=== PATIENT | female | born 1995 | race American Indian/Alaskan Native ===

== ENCOUNTER 2021-01-11 11:50 | Inpatient (IN) | payer OTHER ==
[2021-01-11 13:09] LABS: Bilirubin,Urine NEG (Negative); Blood,Urine NEG (Negative); Color,Urine Yellow (Yellow); Mucus,Urine FEW /HPF; Protein,Urine <15 mg/dL mg/dL (Negative); Urobilinogen,Urine < 2.0 mg/dL (<2.0)
--- NOTE | 2021-01-11 14:31 | History and Physical Report ---
History of Present Illness Date of examination: 01/11/21 (SROM not in labor) Chief complaint: LOF this AM @ 1045 History of present illness: EDC Confirmation: 01/20/2021 Gestational Age: 38w5/7 weeks Past History : 1 Term Births: 0 Premature Births: 0 Living Children: 0 Para: 0 Mult. Births: 0 Prev : 0 Aborta: 0 Elect. Ab: 0 Spont. Ab: 0 Ectopics: 0 Past Medical History: Reviewed history from 04/17/2019 and no changes required: Negative Past Medical History Past Surgical History: Reviewed history from 04/17/2019 and no changes required: positive: ORAL SX Past Medical History Anesthesia Complications: negative Surgery (Non-calibration checker): positive: ORAL SX Abnormal PAP: negative FREDY Exposure: negative Infertility: negative Uterine Anomaly: negative Uterine Surgery (not C/S): negative Social Hx: Patient is Smoking History: Patient has never smoked. +etoh. no tobacco. no durgs Infection History Hx of STD: none HIV Risk Eval: no Genetic History Congenital Heart Defect: Mom: no Dad: no Ezekiel Disease: Mom: no Dad: no Thalassemia Mom: no Dad: no Neural Tube Defect Mom: no Dad: no Down's Syndrome Mom: no Dad: no Rogelio-Sachs Mom: no Dad: no Sickle Cell Disease/Trait Mom: no Dad: no Hemophilia Mom: no Dad: no Muscular Dystrophy Mom: no Dad: no Cystic Fibrosis Mom: no Dad: no Warren Chorea Mom: no Dad: no Mental Retardation Mom: no Dad: no Fragile X Mom: no Dad: no Other Genetic/Chromosomal Disorder Mom: no Dad: no Child w/other defect Mom: no Dad: no Enviromental Exposures Xray Exposure: no Medication, drug, or alcohol use since LMP: no Chemical/Other Exposure: no Exposure to Cat Liter: no Hx of Parvovirus (Fifth Disease): no Occupational Exposure to Children: none Active Medications (reviewed today): None Current Allergies (reviewed today): No known allergies Past History - Obstetrical History Expected Date of Delivery: 01/20/21 Actual Gestation: 38 Week(s) 6 Day(s) : 1 Medications and Allergies Allergies Allergy/AdvReac Type Severity Reaction Status Date / Time No Known Allergies Allergy Unverified 01/11/21 12:46 Review of Systems All systems: negative - Vital Signs Vital signs: Vital Signs Pulse BP Pulse Ox 100 H 113/87 98 01/11/21 12:22 01/11/21 12:22 01/11/21 12:22 Temp Pulse Resp BP Pulse Ox 98.0 F 57 L 16 113/87 100 01/11/21 12:28 01/11/21 14:17 01/11/21 12:28 01/11/21 12:28 01/11/21 14:17 - Physical Exam Breasts: Positive: deferred Cardiovascular: Regular rate, Normal S1, Normal S2 Lungs: Positive: Clear to auscultation Abdomen: Positive: normal appearance, soft, normal bowel sounds. Negative: distention, tenderness Genitourinary (Female): Positive: normal external genitalia Vulva: both: normal Vagina: Positive: normal moisture. Negative: discharge Cervix: Negative: lesion, discharge Uterus: Positive: normal size, normal contour Adnexa: both: normal Anus/Rectum: Positive: normal perianal skin, heme negative. Negative: rectal mass, hemorrhoids Extremities: Positive: normal Deep Tendon Reflex Grade: Normal +2 - Obstetrical FHR: category 1 Uterine Contraction Monitor Mode: External Cervical Dilatation: 1 (posterior) Cervical Effacement Percentage: 50 (clear fluid) station: -3 Uterine Contraction Pattern: Irregular Uterine Contraction Intensity: Mild Results Result Diagrams: 01/11/21 15:00 All other labs normal. GBS Negative HBsAg Screen Negative Negative *1 RPR Non Reactive Non Reactive *2 Rubella Antibodies, IgG [L] <0.90 index Immune >0.99 *3 Non-immune <0.90 Equivocal 0.90 - 0.99 Immune >0.99 ABO Grouping O *4 Rh Factor Positive *5 Please note: Prior records for this patient's ABO / Rh type are not available for additional verification. Antibody Screen Negative Negative *6 WBC 6.2 x10E3/uL 3.4-10.8 *7 RBC 4.94 x10E6/uL 3.77-5.28 *8 Hemoglobin 12.7 g/dL 11.1-15.9 *9 Hematocrit 39.2 % 34.0-46.6 *10 MCV 79 fL 79-97 *11 MCH [L] 25.7 pg 26.6-33.0 *12 MCHC 32.4 g/dL 31.5-35.7 *13 RDW 13.8 % 11.7-15.4 *14 Platelets 340 x10E3/uL 150-450 *15 Neutrophils 68 % Not Estab. *16 Lymphs 23 % Not Estab. *17 Monocytes 7 % Not Estab. *18 Eos 1 % Not Estab. *19 Basos 1 % Not Estab. *20 ! Immature Cells <No Reported Value> *21 Neutrophils (Absolute) 4.2 x10E3/uL 1.4-7.0 *22 Lymphs (Absolute) 1.4 x10E3/uL 0.7-3.1 *23 Monocytes(Absolute) 0.4 x10E3/uL 0.1-0.9 *24 Eos (Absolute) 0.0 x10E3/uL 0.0-0.4 *25 Baso (Absolute) 0.0 x10E3/uL 0.0-0.2 *26 ! Immature Granulocytes 0 % Not Estab. *27 ! Immature Grans (Abs) 0.0 x10E3/uL 0.0-0.1 *28 ! NRBC <No Reported Value> *29 Hematology Comments: <No Reported Value> *30 Tests: (2) HB Solu + Rflx Frac ([id number]) Hemoglobin (Hgb) Solubility Negative Negative *31 Tests: (3) HIV Ag/Ab with Reflex ([id number]) HIV Screen 4th Generation wRfx Non Reactive Non Reactive *32 Tests: (4) HCV Ab w/Rflx to Verification ([id number]) ! HCV Ab <0.1 s/co ratio 0.0-0.9 *33 Tests: (5) Comment: ([id number]) ! Comment: SPRCS *34 Non reactive HCV antibody screen is consistent with no HCV infection, unless recent infection is suspected or other evidence exists to indicate HCV infection. Tests: (6) Urine Culture, Routine ([id number]) Urine Culture, Routine Final report *35 Tests: (7) Result ([id number]) ! Result 1 MUG *36 Mixed urogenital trista Greater than 100,000 colony forming units per mL Assessment and Plan 25yo @ 38w with SROM not in labor GBS negative All orders in EMR Dr Yo aware of admission - Patient Problems (1) Spontaneous rupture of membranes Onset Date: ~01/11/21 Current Visit: Yes Status: Acute Plan to address problem: GBS negative Will plan to start low dose pit overnight. Cat 1 FHR tracing
[2021-01-11] MEDS ORDERED: TERBUTALINE 1 MG/1 ML INJ SUB-Q PRN (14:32)
[2021-01-11] MEDS ORDERED: ePHEDrine SULFATE 50 MG/1 ML INJ IV PRN (14:32)
[2021-01-11] MEDS ORDERED: ONDANSETRON 4 MG/2 ML INJ IV PRN (14:32)
[2021-01-11] MEDS ORDERED: LIDOCAINE (2%) 20 MG/1 ML VIAL 20 ML MDV INFILTRATI ONE (14:32)
[2021-01-11] MEDS ORDERED: MINERAL OIL 30 ML ORAL LIQD PO PRN (14:32)
[2021-01-11] MEDS ORDERED: fentaNYL 100 MCG/2 ML INJ IV PRN (14:32)
[2021-01-11] MEDS ORDERED: LACTATED RINGERS 1,000 ML IV SCH (14:45)
[2021-01-11] MEDS ORDERED: OXYTOCIN DRIP 30 UNITS/500 ML BAG IV SCH ×2 (15:00)
[2021-01-11 15:44] LABS: Hemoglobin 11.9 gm/dl (10.1-14.3); Mean Corpuscular HGB Conc 34 % (30-34); Mean Corpuscular Volume 82 fl (79-97); Platelet Count 255 K/mm3 (140-440); Red Blood Count 4.26 M/mm3 (3.65-5.03); Red Cell Distribution Width 14.6 % (13.2-15.2)
--- NOTE | 2021-01-12 05:24 | Anesthesia Consultation ---
Anesthesia Consult and Med Hx Date of service: 01/12/21 - Airway Anesthetic Teeth Evaluation: Good ROM Head & Neck: Adequate Mental/Hyoid Distance: Adequate Mallampati Class: Class II Intubation Access Assessment: Good - Pulmonary Exam CTA: Yes - Cardiac Exam Cardiac Exam: RRR - Pre-Operative Health Status ASA Pre-Surgery Classification: ASA2 Proposed Anesthetic Plan: Epidural - Pulmonary Hx Smoking: No Hx Asthma: No Hx Respiratory Symptoms: No SOB: No COPD: No Home Oxygen Therapy: No Hx Pneumonia: No Hx Sleep Apnea: No - Cardiovascular System Hx Hypertension: No Hx Coronary Artery Disease: No Hx Heart Attack/AMI: No Hx Angina: No Hx Percutaneous Transluminal Coronary Angioplasty (PTCA): No Hx Cardia Arrhythmia: No Hx Pacemaker: No Hx Internal Defibrillator: No Hx Valvular Heart Disease: No Hx Heart Murmur: No Hx Peripheral Vascular Disease: No - Central Nervous System Hx Neuromuscular Disorder: No Hx Seizures: No CVA: No Hx Back Pain: No Hx Psychiatric Problems: No - Gastrointestinal Hx Ulcer: No Hx Gastroesophageal Reflux Disease: Yes - Endocrine Hx Renal Disease: No Hx End Stage Renal Disease: No Hx Cirrhosis: No Hx Liver Disease: No Hx Insulin Dependent Diabetes: No Hx Non-Insulin Dependent Diabetes: No Hx Thyroid Disease: No Hx Hypothyroidism: No Hx Hyperthyroidism: No - Hematic Hx Anemia: No Hx Sickle Cell Disease: No - Other Systems Hx Alcohol Use: No Hx Substance Use: No Hx Cancer: No Hx Obesity: No
--- NOTE | 2021-01-12 05:29 | Progress Note ---
Labor Epidural - Labor Epidural Start Time: 05:08 Stop Time: 05:11 Performed by:: JUAN SCHAFFER Procedure: Patient is requesting a laboring epidural for laboring pain. Patient IDed, H&P reviewed, all questions and concerns were answered, and consent was signed. Timeout was performed at bedside. Patient in sitting position. Sterile prep and drape was performed. [3] ml of 1% lidocaine skin wheal at L[3]- L [4]. 18- gauge Tuohy epidural needle was advanced to loss of resistance with saline technique 7cm. Negative CSF negative blood. Epidural catheter advanced to [10] centimeters. [NEGATIVE] Aspiration [NEGATIVE] test dose. Sterile dressing applied. Patient tolerated procedure.
[2021-01-12] MEDS ORDERED: fentaNYL-BUPIV 2 MCG/ML-0.125% 200 MCG/100 ML BAG EPIDURAL ONE (05:40)
--- NOTE | 2021-01-12 06:01 | Progress Note ---
Assessment and Plan Received call enroute that pt was complete. On my arrival pt asking for epidural. Anesthesia called. Epidural placed, with good results. SVE 5,80,0 Internal monitors placed. Pit @ 2mu will increase per protocol. All concerns addressed - Patient Problems (1) Spontaneous rupture of membranes Onset Date: ~01/11/21 Current Visit: Yes Status: Acute Subjective - Subjective Date of service: 01/12/21 (comfortable with epidural) Principal diagnosis: IUP @ 38w6d SROM 01/11/21 clear Interval history: EDC Confirmation: 01/20/2021 Gestational Age: 38w5/7 weeks Past History : 1 Term Births: 0 Premature Births: 0 Living Children: 0 Para: 0 Mult. Births: 0 Prev : 0 Aborta: 0 Elect. Ab: 0 Spont. Ab: 0 Ectopics: 0 Past Medical History: Reviewed history from 04/17/2019 and no changes required: Negative Past Medical History Past Surgical History: Reviewed history from 04/17/2019 and no changes required: positive: ORAL SX Past Medical History Anesthesia Complications: negative Surgery (Non-head correction officer): positive: ORAL SX Abnormal PAP: negative FREDY Exposure: negative Infertility: negative Uterine Anomaly: negative Uterine Surgery (not C/S): negative Social Hx: Patient is Smoking History: Patient has never smoked. +etoh. no tobacco. no durgs Infection History Hx of STD: none HIV Risk Eval: no Genetic History Congenital Heart Defect: Mom: no Dad: no Ezekiel Disease: Mom: no Dad: no Thalassemia Mom: no Dad: no Neural Tube Defect Mom: no Dad: no Down's Syndrome Mom: no Dad: no Rogelio-Sachs Mom: no Dad: no Sickle Cell Disease/Trait Mom: no Dad: no Hemophilia Mom: no Dad: no Muscular Dystrophy Mom: no Dad: no Cystic Fibrosis Mom: no Dad: no Luciano Chorea Mom: no Dad: no Mental Retardation Mom: no Dad: no Fragile X Mom: no Dad: no Other Genetic/Chromosomal Disorder Mom: no Dad: no Child w/other defect Mom: no Dad: no Enviromental Exposures Xray Exposure: no Medication, drug, or alcohol use since LMP: no Chemical/Other Exposure: no Exposure to Cat Liter: no Hx of Parvovirus (Fifth Disease): no Occupational Exposure to Children: none Active Medications (reviewed today): None Current Allergies (reviewed today): No known allergies Patient reports: movement normal Objective - Vital Signs Vital Signs: Vital Signs - 12hr 01/11/21 01/11/21 01/11/21 18:22 18:23 18:28 Temperature Pulse Rate 108 H 104 H 98 H Respiratory 15 Rate Blood Pressure 117/64 Blood Pressure 117/64 [Left] O2 Sat by Pulse 100 100 99 Oximetry 01/11/21 01/11/21 01/11/21 18:33 18:38 18:43 Temperature Pulse Rate 112 H 109 H 108 H Respiratory Rate Blood Pressure Blood Pressure [Left] O2 Sat by Pulse 100 100 100 Oximetry 01/11/21 01/11/21 01/11/21 18:48 18:53 18:58 Temperature Pulse Rate 108 H 116 H 108 H Respiratory Rate Blood Pressure Blood Pressure [Left] O2 Sat by Pulse 100 100 99 Oximetry 01/11/21 01/11/21 01/11/21 19:03 19:06 19:08 Temperature 98.3 F Pulse Rate 112 H 105 H 111 H Respiratory 12 Rate Blood Pressure 127/64 Blood Pressure 127/64 [Left] O2 Sat by Pulse 100 100 100 Oximetry 01/11/21 01/11/21 01/11/21 19:13 19:18 19:23 Temperature Pulse Rate 107 H 108 H 114 H Respiratory Rate Blood Pressure Blood Pressure [Left] O2 Sat by Pulse 100 100 99 Oximetry 01/11/21 01/11/21 01/11/21 19:28 19:43 19:48 Temperature Pulse Rate 111 H 99 H 115 H Respiratory Rate Blood Pressure Blood Pressure [Left] O2 Sat by Pulse 100 100 99 Oximetry 01/11/21 01/11/21 01/11/21 19:53 19:58 20:03 Temperature Pulse Rate 109 H 105 H 106 H Respiratory Rate Blood Pressure Blood Pressure [Left] O2 Sat by Pulse 99 99 99 Oximetry 01/11/21 01/11/21 01/11/21 20:08 20:13 20:18 Temperature Pulse Rate 105 H 101 H 103 H Respiratory Rate Blood Pressure Blood Pressure [Left] O2 Sat by Pulse 100 99 99 Oximetry 01/11/21 01/11/21 01/11/21 20:23 20:28 20:33 Temperature Pulse Rate 108 H 100 H 102 H Respiratory Rate Blood Pressure Blood Pressure [Left] O2 Sat by Pulse 99 100 99 Oximetry 01/11/21 01/11/21 01/11/21 20:38 20:43 20:48 Temperature Pulse Rate 101 H 94 H 103 H Respiratory Rate Blood Pressure Blood Pressure [Left] O2 Sat by Pulse 100 99 98 Oximetry 01/11/21 01/11/21 01/11/21 20:53 20:58 21:03 Temperature Pulse Rate 99 H 95 H 108 H Respiratory Rate Blood Pressure Blood Pressure [Left] O2 Sat by Pulse 99 99 99 Oximetry 01/11/21 01/11/21 01/11/21 21:08 21:13 21:18 Temperature Pulse Rate 100 H 103 H 97 H Respiratory Rate Blood Pressure Blood Pressure [Left] O2 Sat by Pulse 99 99 99 Oximetry 01/11/21 01/11/21 01/11/21 21:23 21:28 21:30 Temperature 98.3 F Pulse Rate 103 H 98 H Respiratory Rate Blood Pressure Blood Pressure [Left] O2 Sat by Pulse 99 98 Oximetry 01/11/21 01/11/21 01/11/21 21:33 21:38 21:43 Temperature Pulse Rate 106 H 91 H 94 H Respiratory Rate Blood Pressure Blood Pressure [Left] O2 Sat by Pulse 98 99 99 Oximetry 01/11/21 01/11/21 01/11/21 21:48 21:53 21:58 Temperature Pulse Rate 107 H 92 H 91 H Respiratory Rate Blood Pressure Blood Pressure [Left] O2 Sat by Pulse 99 98 100 Oximetry 01/11/21 01/11/21 01/11/21 22:03 22:08 22:13 Temperature Pulse Rate 91 H 93 H 101 H Respiratory Rate Blood Pressure Blood Pressure [Left] O2 Sat by Pulse 99 99 100 Oximetry 01/11/21 01/11/21 01/11/21 22:18 22:23 22:28 Temperature Pulse Rate 92 H 102 H 92 H Respiratory Rate Blood Pressure Blood Pressure [Left] O2 Sat by Pulse 100 100 100 Oximetry 01/11/21 01/11/21 01/11/21 22:33 22:38 22:43 Temperature Pulse Rate 100 H 90 91 H Respiratory Rate Blood Pressure Blood Pressure [Left] O2 Sat by Pulse 100 100 98 Oximetry 01/11/21 01/11/21 01/11/21 22:48 22:53 23:02 Temperature Pulse Rate 95 H 93 H 101 H Respiratory Rate Blood Pressure Blood Pressure [Left] O2 Sat by Pulse 98 98 99 Oximetry 01/11/21 01/11/21 01/11/21 23:07 23:12 23:17 Temperature Pulse Rate 91 H 88 96 H Respiratory Rate Blood Pressure Blood Pressure [Left] O2 Sat by Pulse 99 99 99 Oximetry 01/11/21 01/11/21 01/11/21 23:22 23:27 23:32 Temperature Pulse Rate 95 H 87 101 H Respiratory Rate Blood Pressure Blood Pressure [Left] O2 Sat by Pulse 98 98 98 Oximetry 01/11/21 01/11/21 01/11/21 23:37 23:38 23:42 Temperature 98.2 F Pulse Rate 95 H 89 Respiratory Rate Blood Pressure Blood Pressure [Left] O2 Sat by Pulse 98 98 Oximetry 01/11/21 01/11/21 01/11/21 23:47 23:52 23:57 Temperature Pulse Rate 84 89 91 H Respiratory Rate Blood Pressure Blood Pressure [Left] O2 Sat by Pulse 98 98 98 Oximetry 01/12/21 01/12/21 01/12/21 00:02 00:07 00:12 Temperature Pulse Rate 85 95 H 86 Respiratory Rate Blood Pressure Blood Pressure [Left] O2 Sat by Pulse 98 98 98 Oximetry 01/12/21 01/12/21 01/12/21 00:17 00:22 00:27 Temperature Pulse Rate 91 H 88 89 Respiratory Rate Blood Pressure Blood Pressure [Left] O2 Sat by Pulse 98 98 98 Oximetry 01/12/21 01/12/21 01/12/21 00:32 00:37 00:49 Temperature Pulse Rate 85 89 92 H Respiratory Rate Blood Pressure Blood Pressure [Left] O2 Sat by Pulse 98 98 99 Oximetry 01/12/21 01/12/21 01/12/21 00:54 00:59 01:04 Temperature Pulse Rate 87 92 H 82 Respiratory Rate Blood Pressure Blood Pressure [Left] O2 Sat by Pulse 98 99 99 Oximetry 01/12/21 01/12/21 01/12/21 01:09 01:14 01:19 Temperature Pulse Rate 85 94 H 81 Respiratory Rate Blood Pressure Blood Pressure [Left] O2 Sat by Pulse 98 98 99 Oximetry 01/12/21 01/12/21 01/12/21 01:24 01:29 01:34 Temperature Pulse Rate 83 82 85 Respiratory Rate Blood Pressure Blood Pressure [Left] O2 Sat by Pulse 99 99 99 Oximetry 01/12/21 01/12/21 01/12/21 01:39 01:44 01:49 Temperature Pulse Rate 94 H 87 87 Respiratory Rate Blood Pressure Blood Pressure [Left] O2 Sat by Pulse 99 98 98 Oximetry 01/12/21 01/12/21 01/12/21 01:54 01:59 02:04 Temperature Pulse Rate 86 94 H 90 Respiratory Rate Blood Pressure Blood Pressure [Left] O2 Sat by Pulse 98 97 98 Oximetry 01/12/21 01/12/21 01/12/21 02:09 02:14 02:19 Temperature Pulse Rate 93 H 83 88 Respiratory Rate Blood Pressure Blood Pressure [Left] O2 Sat by Pulse 99 98 99 Oximetry 01/12/21 01/12/21 01/12/21 02:35 02:40 02:45 Temperature Pulse Rate 89 85 91 H Respiratory Rate Blood Pressure Blood Pressure [Left] O2 Sat by Pulse 98 97 99 Oximetry 01/12/21 01/12/21 01/12/21 02:50 02:55 03:00 Temperature Pulse Rate 85 84 88 Respiratory Rate Blood Pressure Blood Pressure [Left] O2 Sat by Pulse 98 98 98 Oximetry 01/12/21 01/12/21 01/12/21 03:05 03:30 03:35 Temperature Pulse Rate 91 H 86 85 Respiratory Rate Blood Pressure Blood Pressure [Left] O2 Sat by Pulse 98 98 99 Oximetry 01/12/21 01/12/21 01/12/21 03:52 04:20 04:52 Temperature Pulse Rate 92 H 103 H 93 H Respiratory Rate Blood Pressure Blood Pressure [Left] O2 Sat by Pulse 98 100 100 Oximetry 01/12/21 01/12/21 01/12/21 04:56 04:57 05:02 Temperature Pulse Rate 105 H 114 H 97 H Respiratory Rate Blood Pressure 120/77 Blood Pressure [Left] O2 Sat by Pulse 99 98 Oximetry 01/12/21 01/12/21 01/12/21 05:07 05:12 05:16 Temperature Pulse Rate 109 H 99 H 92 H Respiratory Rate Blood Pressure 114/53 Blood Pressure [Left] O2 Sat by Pulse 100 99 Oximetry 01/12/21 01/12/21 01/12/21 05:17 05:22 05:27 Temperature Pulse Rate 86 91 H 83 Respiratory Rate Blood Pressure Blood Pressure [Left] O2 Sat by Pulse 97 98 97 Oximetry 01/12/21 01/12/21 01/12/21 05:32 05:37 05:42 Temperature Pulse Rate 80 83 85 Respiratory Rate Blood Pressure Blood Pressure [Left] O2 Sat by Pulse 99 98 98 Oximetry 01/12/21 01/12/21 05:47 05:52 Temperature Pulse Rate 80 86 Respiratory Rate Blood Pressure Blood Pressure [Left] O2 Sat by Pulse 97 97 Oximetry - Exam Breasts: deferred Cardiovascular: Regular rate Lungs: Normal air movement Abdomen: Present: normal appearance, soft. Absent: distention, tenderness Uterus: Present: normal FHR: auscultation normal, category 1 Uterine Contraction Monitor Mode: Internal Cervical Dilatation: 5 (ISE/IUPC placed) Cervical Effacement Percentage: 80 station: 0 Uterine Contraction Pattern: Regular Uterine Tone Measurement Phase: Resting Uterine Contraction Intensity: Moderate Extremities: normal Deep Tendon Reflex Grade: Normal +2 - Labs Labs: Abnormal Labs 01/11/21 15:00 WBC 12.2 H Laboratory Results - last 24 hr 01/11/21 01/11/21 01/11/21 12:49 15:00 15:00 WBC 12.2 H RBC 4.26 Hgb 11.9 Hct 35.0 MCV 82 MCH 28 MCHC 34 RDW 14.6 Plt Count 255 Urine Color Yellow Urine Turbidity Clear Urine pH 6.0 Ur Specific [place] 1.014 Urine Protein <15 mg/dl Urine Glucose (UA) Neg Urine Ketones Neg Urine Blood Neg Urine Nitrite Neg Urine Bilirubin Neg Urine Urobilinogen < 2.0 Ur Leukocyte Esterase Neg Urine WBC (Auto) 2.0 Urine RBC (Auto) 3.0 U Epithel Cells (Auto) 6.0 Urine Mucus Few Syphilis IgG Antibody Nonreactive Blood Type Antibody Screen 01/11/21 15:00 WBC RBC Hgb Hct MCV MCH MCHC RDW Plt Count Urine Color Urine Turbidity Urine pH Ur Specific [place] Urine Protein Urine Glucose (UA) Urine Ketones Urine Blood Urine Nitrite Urine Bilirubin Urine Urobilinogen Ur Leukocyte Esterase Urine WBC (Auto) Urine RBC (Auto) U Epithel Cells (Auto) Urine Mucus Syphilis IgG Antibody Blood Type O POSITIVE Antibody Screen Negative
--- NOTE | 2021-01-12 06:49 | Ultrasound Report ---
ULTRASOUND OBSTETRIC LIMITED INDICATION / CLINICAL INFORMATION: wellbeing. Clinical Gestational Age (GA): weeks.days COMPARISON: None available. FINDINGS: HEART RATE (beats per minute): 141 AMNIOTIC FLUID INDEX (cm) = 4.4 (normal = 7-24 cm) PRESENTATION: Cephalic. ADDITIONAL FINDINGS: None. IMPRESSION: 1. Oligohydramnios Signer Name: Jonh Bonilla MD Signed: 01/12/2021 6:45 AM Workstation Name: [id number]
--- NOTE | 2021-01-12 07:31 | Progress Note ---
Assessment and Plan A: 25 y.o. @ 38.6 wks, active labor. Cervical exam 9.5/100/0. P: Continue with labor care. Will re-check cervix in 30 minutes to 1 hr. Anticipate . Subjective - Subjective Date of service: 01/12/21 (Pt feeling some vaginal presssure) Principal diagnosis: IUP @ 38w6d SROM 01/11/21 clear Patient reports: new complaints Objective - Vital Signs Vital Signs: Vital Signs - 12hr 01/11/21 01/11/21 01/11/21 19:43 19:48 19:53 Temperature Pulse Rate 99 H 115 H 109 H Respiratory Rate Blood Pressure Blood Pressure [Right] O2 Sat by Pulse 100 99 99 Oximetry 01/11/21 01/11/21 01/11/21 19:58 20:03 20:08 Temperature Pulse Rate 105 H 106 H 105 H Respiratory Rate Blood Pressure Blood Pressure [Right] O2 Sat by Pulse 99 99 100 Oximetry 01/11/21 01/11/21 01/11/21 20:13 20:18 20:23 Temperature Pulse Rate 101 H 103 H 108 H Respiratory Rate Blood Pressure Blood Pressure [Right] O2 Sat by Pulse 99 99 99 Oximetry 01/11/21 01/11/21 01/11/21 20:28 20:33 20:38 Temperature Pulse Rate 100 H 102 H 101 H Respiratory Rate Blood Pressure Blood Pressure [Right] O2 Sat by Pulse 100 99 100 Oximetry 01/11/21 01/11/21 01/11/21 20:43 20:48 20:53 Temperature Pulse Rate 94 H 103 H 99 H Respiratory Rate Blood Pressure Blood Pressure [Right] O2 Sat by Pulse 99 98 99 Oximetry 01/11/21 01/11/21 01/11/21 20:58 21:03 21:08 Temperature Pulse Rate 95 H 108 H 100 H Respiratory Rate Blood Pressure Blood Pressure [Right] O2 Sat by Pulse 99 99 99 Oximetry 01/11/21 01/11/21 01/11/21 21:13 21:18 21:23 Temperature Pulse Rate 103 H 97 H 103 H Respiratory Rate Blood Pressure Blood Pressure [Right] O2 Sat by Pulse 99 99 99 Oximetry 01/11/21 01/11/21 01/11/21 21:28 21:30 21:33 Temperature 98.3 F Pulse Rate 98 H 106 H Respiratory Rate Blood Pressure Blood Pressure [Right] O2 Sat by Pulse 98 98 Oximetry 01/11/21 01/11/21 01/11/21 21:38 21:43 21:48 Temperature Pulse Rate 91 H 94 H 107 H Respiratory Rate Blood Pressure Blood Pressure [Right] O2 Sat by Pulse 99 99 99 Oximetry 01/11/21 01/11/21 01/11/21 21:53 21:58 22:03 Temperature Pulse Rate 92 H 91 H 91 H Respiratory Rate Blood Pressure Blood Pressure [Right] O2 Sat by Pulse 98 100 99 Oximetry 01/11/21 01/11/21 01/11/21 22:08 22:13 22:18 Temperature Pulse Rate 93 H 101 H 92 H Respiratory Rate Blood Pressure Blood Pressure [Right] O2 Sat by Pulse 99 100 100 Oximetry 01/11/21 01/11/21 01/11/21 22:23 22:28 22:33 Temperature Pulse Rate 102 H 92 H 100 H Respiratory Rate Blood Pressure Blood Pressure [Right] O2 Sat by Pulse 100 100 100 Oximetry 01/11/21 01/11/21 01/11/21 22:38 22:43 22:48 Temperature Pulse Rate 90 91 H 95 H Respiratory Rate Blood Pressure Blood Pressure [Right] O2 Sat by Pulse 100 98 98 Oximetry 01/11/21 01/11/21 01/11/21 22:53 23:02 23:07 Temperature Pulse Rate 93 H 101 H 91 H Respiratory Rate Blood Pressure Blood Pressure [Right] O2 Sat by Pulse 98 99 99 Oximetry 01/11/21 01/11/21 01/11/21 23:12 23:17 23:22 Temperature Pulse Rate 88 96 H 95 H Respiratory Rate Blood Pressure Blood Pressure [Right] O2 Sat by Pulse 99 99 98 Oximetry 01/11/21 01/11/21 01/11/21 23:27 23:32 23:37 Temperature Pulse Rate 87 101 H 95 H Respiratory Rate Blood Pressure Blood Pressure [Right] O2 Sat by Pulse 98 98 98 Oximetry 01/11/21 01/11/21 01/11/21 23:38 23:42 23:47 Temperature 98.2 F Pulse Rate 89 84 Respiratory Rate Blood Pressure Blood Pressure [Right] O2 Sat by Pulse 98 98 Oximetry 01/11/21 01/11/21 01/12/21 23:52 23:57 00:02 Temperature Pulse Rate 89 91 H 85 Respiratory Rate Blood Pressure Blood Pressure [Right] O2 Sat by Pulse 98 98 98 Oximetry 01/12/21 01/12/21 01/12/21 00:07 00:12 00:17 Temperature Pulse Rate 95 H 86 91 H Respiratory Rate Blood Pressure Blood Pressure [Right] O2 Sat by Pulse 98 98 98 Oximetry 01/12/21 01/12/21 01/12/21 00:22 00:27 00:32 Temperature Pulse Rate 88 89 85 Respiratory Rate Blood Pressure Blood Pressure [Right] O2 Sat by Pulse 98 98 98 Oximetry 01/12/21 01/12/21 01/12/21 00:37 00:49 00:54 Temperature Pulse Rate 89 92 H 87 Respiratory Rate Blood Pressure Blood Pressure [Right] O2 Sat by Pulse 98 99 98 Oximetry 01/12/21 01/12/21 01/12/21 00:59 01:04 01:09 Temperature Pulse Rate 92 H 82 85 Respiratory Rate Blood Pressure Blood Pressure [Right] O2 Sat by Pulse 99 99 98 Oximetry 01/12/21 01/12/21 01/12/21 01:14 01:19 01:24 Temperature Pulse Rate 94 H 81 83 Respiratory Rate Blood Pressure Blood Pressure [Right] O2 Sat by Pulse 98 99 99 Oximetry 01/12/21 01/12/21 01/12/21 01:29 01:34 01:39 Temperature Pulse Rate 82 85 94 H Respiratory Rate Blood Pressure Blood Pressure [Right] O2 Sat by Pulse 99 99 99 Oximetry 01/12/21 01/12/21 01/12/21 01:44 01:49 01:54 Temperature Pulse Rate 87 87 86 Respiratory Rate Blood Pressure Blood Pressure [Right] O2 Sat by Pulse 98 98 98 Oximetry 01/12/21 01/12/21 01/12/21 01:59 02:04 02:09 Temperature Pulse Rate 94 H 90 93 H Respiratory Rate Blood Pressure Blood Pressure [Right] O2 Sat by Pulse 97 98 99 Oximetry 01/12/21 01/12/21 01/12/21 02:14 02:19 02:35 Temperature Pulse Rate 83 88 89 Respiratory Rate Blood Pressure Blood Pressure [Right] O2 Sat by Pulse 98 99 98 Oximetry 01/12/21 01/12/21 01/12/21 02:40 02:45 02:50 Temperature Pulse Rate 85 91 H 85 Respiratory Rate Blood Pressure Blood Pressure [Right] O2 Sat by Pulse 97 99 98 Oximetry 01/12/21 01/12/21 01/12/21 02:55 03:00 03:05 Temperature Pulse Rate 84 88 91 H Respiratory Rate Blood Pressure Blood Pressure [Right] O2 Sat by Pulse 98 98 98 Oximetry 01/12/21 01/12/21 01/12/21 03:30 03:35 03:52 Temperature Pulse Rate 86 85 92 H Respiratory Rate Blood Pressure Blood Pressure [Right] O2 Sat by Pulse 98 99 98 Oximetry 01/12/21 01/12/21 01/12/21 04:20 04:52 04:56 Temperature Pulse Rate 103 H 93 H 105 H Respiratory Rate Blood Pressure 120/77 Blood Pressure [Right] O2 Sat by Pulse 100 100 Oximetry 01/12/21 01/12/21 01/12/21 04:57 05:02 05:07 Temperature Pulse Rate 114 H 97 H 109 H Respiratory Rate Blood Pressure Blood Pressure [Right] O2 Sat by Pulse 99 98 100 Oximetry 01/12/21 01/12/21 01/12/21 05:12 05:16 05:17 Temperature Pulse Rate 99 H 92 H 86 Respiratory Rate Blood Pressure 114/53 Blood Pressure [Right] O2 Sat by Pulse 99 97 Oximetry 01/12/21 01/12/21 01/12/21 05:22 05:27 05:32 Temperature Pulse Rate 91 H 83 80 Respiratory Rate Blood Pressure Blood Pressure [Right] O2 Sat by Pulse 98 97 99 Oximetry 01/12/21 01/12/21 01/12/21 05:37 05:42 05:47 Temperature Pulse Rate 83 85 80 Respiratory Rate Blood Pressure Blood Pressure [Right] O2 Sat by Pulse 98 98 97 Oximetry 01/12/21 01/12/21 01/12/21 05:52 05:57 06:02 Temperature Pulse Rate 86 79 78 Respiratory Rate Blood Pressure Blood Pressure [Right] O2 Sat by Pulse 97 96 98 Oximetry 01/12/21 01/12/21 01/12/21 06:07 06:12 06:17 Temperature Pulse Rate 78 77 83 Respiratory Rate Blood Pressure Blood Pressure [Right] O2 Sat by Pulse 97 97 98 Oximetry 01/12/21 01/12/21 01/12/21 06:22 06:27 06:30 Temperature 98.1 F Pulse Rate 78 81 Respiratory Rate Blood Pressure Blood Pressure [Right] O2 Sat by Pulse 97 97 Oximetry 01/12/21 01/12/21 01/12/21 06:32 06:37 06:42 Temperature Pulse Rate 76 78 75 Respiratory Rate Blood Pressure Blood Pressure [Right] O2 Sat by Pulse 97 98 98 Oximetry 01/12/21 01/12/21 01/12/21 06:46 06:47 06:48 Temperature Pulse Rate 75 79 82 Respiratory Rate Blood Pressure 94/51 Blood Pressure [Right] O2 Sat by Pulse 99 94 Oximetry 01/12/21 01/12/21 01/12/21 06:52 06:55 06:57 Temperature 98.0 F Pulse Rate 74 76 83 Respiratory 16 Rate Blood Pressure 98/55 Blood Pressure 98/55 [Right] O2 Sat by Pulse 97 99 99 Oximetry 01/12/21 01/12/21 01/12/21 07:02 07:03 07:07 Temperature Pulse Rate 80 82 78 Respiratory Rate Blood Pressure 101/57 Blood Pressure [Right] O2 Sat by Pulse 98 99 Oximetry 01/12/21 01/12/21 01/12/21 07:12 07:17 07:19 Temperature Pulse Rate 80 73 76 Respiratory Rate Blood Pressure 100/60 Blood Pressure [Right] O2 Sat by Pulse 99 98 Oximetry 01/12/21 01/12/21 07:22 07:27 Temperature Pulse Rate 81 90 Respiratory Rate Blood Pressure Blood Pressure [Right] O2 Sat by Pulse 100 100 Oximetry - Exam Abdomen: Present: normal appearance Vulva: both: normal Uterus: Present: normal FHR: category 1 (Had one deceleration while re-positioning to semi folwers. Return to baseline after re-position to back. ) Uterine Contraction Monitor Mode: Internal Cervical Dilatation: 9.5 Cervical Effacement Percentage: 100 station: 0 Uterine Contraction Pattern: Regular Uterine Tone Measurement Phase: Resting Uterine Contraction Intensity: Moderate - Labs Labs: Abnormal Labs 01/11/21 15:00 WBC 12.2 H Laboratory Results - last 24 hr 01/11/21 01/11/21 01/11/21 12:49 15:00 15:00 WBC 12.2 H RBC 4.26 Hgb 11.9 Hct 35.0 MCV 82 MCH 28 MCHC 34 RDW 14.6 Plt Count 255 Urine Color Yellow Urine Turbidity Clear Urine pH 6.0 Ur Specific Struthers 1.014 Urine Protein <15 mg/dl Urine Glucose (UA) Neg Urine Ketones Neg Urine Blood Neg Urine Nitrite Neg Urine Bilirubin Neg Urine Urobilinogen < 2.0 Ur Leukocyte Esterase Neg Urine WBC (Auto) 2.0 Urine RBC (Auto) 3.0 U Epithel Cells (Auto) 6.0 Urine Mucus Few Syphilis IgG Antibody Nonreactive Blood Type Antibody Screen 01/11/21 15:00 WBC RBC Hgb Hct MCV MCH MCHC RDW Plt Count Urine Color Urine Turbidity Urine pH Ur Specific Struthers Urine Protein Urine Glucose (UA) Urine Ketones Urine Blood Urine Nitrite Urine Bilirubin Urine Urobilinogen Ur Leukocyte Esterase Urine WBC (Auto) Urine RBC (Auto) U Epithel Cells (Auto) Urine Mucus Syphilis IgG Antibody Blood Type O POSITIVE Antibody Screen Negative
[2021-01-12] MEDS ORDERED: miSOPROStol 200 MCG TAB ONE ×2 (09:26→09:29)
[2021-01-12] MEDS ORDERED: miSOPROStol 100 MCG TAB ONE (09:26)
--- NOTE | 2021-01-12 09:48 | Procedure Note ---
OB Delivery Note - Delivery Date of Delivery: 01/12/21 Block Cleaner: HUBERT PLUMMER Estimated blood loss: other (600ml) - Vaginal Delivery presentation: vertex Delivery position: OA Intrapartum events: hemorrhage Delivery induction: none Delivery augmentation: pitocin Delivery monitor: external FHT, external uterine, internal FHT, internal uterine Route of delivery: Delivery placenta: spontaneous Delivery cord: nuchal cord (X2 easily reduced. ) Episiotomy: none Delivery laceration: 1st degree (Hemostatic, no repair needed. ) Anesthesia: epidural Delivery comments: of viable male . Nuchal cord X2 easily reduced. Infant to mothers abdomen for skin to skin. Cord cut and clamped and infant handed to [facility] team for evaluation. Spontaneous delivery of placenta intact, complete, 3 vessels noted. Brisk bleeding noted after delivery of placenta. Stopped with Pitocin and 800 mcg of rectal. Fundus firm and minimal bleeding noted after interventions. Perineum and vagina inspected, 1st degree noted, hemostatic, no repair needed. weight 7 lbs 0.3 ozs. EBL: 600ml. Apgars 8,9. Infant and mother left in care of RN in stable and good condition. Instruments and sponges counted X 2 and correct X 2. - Infant A at 1 minute: 8 at 5 minutes: 9 Infant Gender: Male (Roberto)
[2021-01-12] MEDS ORDERED: PROMETHAZINE 25 MG RECT SUPP PR PRN (09:54)
[2021-01-12] MEDS ORDERED: diphenhydrAMINE 25 MG CAP PO PRN (09:54)
[2021-01-12] MEDS ORDERED: LANOLIN/ZINC/DIMETHICONE (LANSINOH) 7 GM TP PRN ×2 (09:54)
[2021-01-12] MEDS ORDERED: MAGNESIUM HYDROXIDE (MOM) ORAL LIQD UDC PO PRN (09:54)
[2021-01-12] MEDS ORDERED: METHYLERGONOVINE MALEATE 0.2 MG/ML VIAL IM PRN (09:54)
[2021-01-12] MEDS ORDERED: PROMETHAZINE 25 MG TAB PO PRN (09:54)
[2021-01-12] MEDS ORDERED: LOPERAMIDE 2 MG CAP PO PRN (09:54)
[2021-01-12] MEDS ORDERED: miSOPROStol 100 MCG TAB PR PRN (09:54)
[2021-01-12] MEDS ORDERED: ONDANSETRON 4 MG/2 ML INJ IV PRN (09:54)
[2021-01-12] MEDS ORDERED: CARBOPROST TROMETHAMINE 250 MCG/1 ML INJ IM PRN (09:54)
[2021-01-12] MEDS ORDERED: OXYTOCIN DRIP 30 UNITS/500 ML BAG IV SCH (10:00)
[2021-01-12] MEDS ORDERED: ACETAMINOPHEN 500 MG TAB PO PRN (10:02)
[2021-01-12] MEDS: DOCUSATE SODIUM 100 MG CAP PO SCH ×2 (10:23→23:36)
[2021-01-12] MEDS: PRENATAL VIT27-FE FUMARATE-FOLIC ACID VIT TAB PO SCH (10:23)
[2021-01-12] MEDS: IBUPROFEN 800 MG TAB PO SCH ×3 (10:23→23:36)
[2021-01-12] MEDS: WITCH HAZEL/ GLYCERIN PAD TP PRN (12:17)
[2021-01-12] MEDS: BENZOCAINE/MENTHOL 20/0.5% TOP SPRAY 56 GM TP PRN (12:18)
[2021-01-12 21:36] LABS: Hematocrit 31.2 % (30.3-42.9); Hemoglobin 10.1 gm/dl (10.1-14.3)
[2021-01-13] MEDS: IBUPROFEN 800 MG TAB PO SCH ×3 (05:55→22:08)
--- NOTE | 2021-01-13 08:20 | Discharge Summary ---
Providers - Providers Date of Admission: 01/11/21 14:32 Date of discharge: 01/13/21 (desires d/c home today) Attending physician: ERWIN RUIZ Primary care physician: ERWIN RUIZ Hospitalization Reason for admission: Labor Pertinent studies: H&H .11/23.2 Procedures: Hospital course: uncomplicated and course. Disposition: - TO HOME OR SELFCARE Final Discharge Diagnosis (Prints w/discharge instructions): Normal Vaginal Time spent for discharge: 20 - Discharge Diagnoses (1) Spontaneous vaginal delivery Status: Acute Core Measure Documentation - Palliative Care Palliative Care/ Comfort Measures: Not Applicable - Core Measures Any of the following diagnoses?: none Exam - Constitutional Vitals: Temp Pulse Resp BP Pulse Ox 98.0 F 82 18 89/43 99 01/13/21 01:00 01/13/21 01:00 01/13/21 06:39 01/13/21 01:00 01/13/21 01:00 General appearance: Present: no acute distress, well-nourished - EENT Eyes: Present: PERRL ENT: hearing intact, clear oral mucosa - Neck Neck: Present: supple, normal ROM - Respiratory Respiratory effort: normal Respiratory: bilateral: CTA - Cardiovascular Rhythm: regular - Extremities Extremities: No edema - Abdominal General gastrointestinal: Present: soft, non-tender, non-distended, normal bowel sounds Female genitourinary: Present: normal - Integumentary Integumentary: Present: clear, warm, dry - Musculoskeletal Musculoskeletal: gait normal, strength equal bilaterally - Psychiatric Psychiatric: appropriate mood/affect, intact judgment & insight - Neurologic Neurologic: CNII-XII intact, moves all extremities - Additional findings Additional findings: bottle feeding, fundus firm, lochia scant Plan Activity: no restrictions Diet: regular Follow up with: ERWIN RUIZ MD [Primary Care Provider] - 7 Days (Congratulations! Please call [phone] to schedule your son's circumcision in 1 week and your visit in 4 weeks. Bring EMLA cream to your son's visit and wait for instructions. Please call for any questions or concerns.) Prescriptions: Lidocain2.5%/Prilocai2.5% [Emla] 1 applic TP ONCE #1 tube Ibuprofen [Motrin] 800 mg PO Q8HR PRN #30 tablet PRN Reason: Pain, Moderate (4-6)
[2021-01-13] MEDS ORDERED: DIPHtheria,PERTUSSIS(ACELL),TETANUS VACCINE/PF 0.5 ML VIAL IM ONE (09:57)
--- NOTE | 2021-01-13 12:10 | Post Anesthesia Evaluation ---
- Post Anesthesia Evaluation Patient Participated: Yes Airway Patent: Yes Stable Respiratory Function: Yes Nausea/Vomiting: No Temp > 96.8F: Yes Pain Manageable: Yes Adequeate Hydration: Yes Anesthesia Complications: Yes Block Receding Appropriately: No Patient on Ventilator: No Other Comments: RLE weakness, much improved over yesterday. Pt advised it should continue to improve, but to contact her OB if it does not.
[2021-01-13] MEDS: DOCUSATE SODIUM 100 MG CAP PO SCH ×2 (13:30→22:08)
[2021-01-13] MEDS: PRENATAL VIT27-FE FUMARATE-FOLIC ACID VIT TAB PO SCH (13:30)
[2021-01-13] MEDS: BENZOCAINE/MENTHOL 20/0.5% TOP SPRAY 56 GM TP PRN ×2 (17:42→19:58)
[2021-01-13] MEDS: WITCH HAZEL/ GLYCERIN PAD TP PRN (19:58)
[2021-01-14] MEDS: PRENATAL VIT27-FE FUMARATE-FOLIC ACID VIT TAB PO SCH (11:27)
[2021-01-14] MEDS: DOCUSATE SODIUM 100 MG CAP PO SCH (11:27)
[2021-01-14] MEDS: IBUPROFEN 800 MG TAB PO SCH (11:27)
[2021-01-14 12:36] VITALS: BP 105/64
== END 2021-01-14 12:50 | disposition home or self-care (01) | DRG 807 ==
LOC: TRG 11:50 → APU 11:51 → LD 14:32 → TRG 14:32 → OB 01-12 11:26
PROVIDERS: ADMIT Obstetrics & Gynecology; ATTEND Obstetrics & Gynecology
PROC: 10E0XZZ Delivery of Products of Conception, External Approach (ICD-10-PCS; principal; 2021-01-12)
PROC: 3E0R3BZ Introduction of Anesthetic Agent into Spinal Canal, Percutaneous Approach (ICD-10-PCS; 2021-01-12)
PROC: 00HU33Z Insertion of Infusion Device into Spinal Canal, Percutaneous Approach (ICD-10-PCS; 2021-01-12)
DX: O72.1 Other immediate postpartum hemorrhage (principal); Z37.0 Single live birth; O70.0 First degree perineal laceration during delivery; Z3A.38 38 weeks gestation of pregnancy
CPT/HCPCS: 36415; 59025; 76815; 81001; 85014; 85018; 85027; 86592; 86850; 86900; 86901; G0378; J2590; J3010; J3105; J7120; U0003